=== PATIENT | male | born 1950 | race Caucasian/White ===

== ENCOUNTER → 2019-10-01 13:50 | Outpatient (CLI) | payer MEDICARE, OTHER, SELFPAY ==
[2019-10-02 09:16] LABS: COVID19 Sendout Not Detected (Not Detect)
== END ==
PROVIDERS: Visit Provider Physician Assistant
DX: Z01.812 Encounter for preprocedural laboratory examination (principal)
CPT/HCPCS: 87635

== ENCOUNTER 2019-10-04 10:24 | Day surgery (SDC) | payer MEDICARE, OTHER, SELFPAY ==
[2019-09-29 11:58] VITALS: BMI 29.6
[2019-10-04] VITALS (13 sets, daily range): BP systolic 101–137; BP diastolic 48–76; PULSE 55–72; RESP 10–18; TEMP 35.9–36.8; O2SAT 92–100; BMI 29.6
[2019-10-04] MEDS: LACTATED RINGERS 1,000 ML 42 ML IV (10:57)
[2019-10-04] MEDS: CELECOXIB 200 MG CAPSULE PO (11:23)
[2019-10-04] MEDS: ACETAMINOPHEN 325 MG TABLET 975 MG PO (11:24)
--- NOTE | 2019-10-04 11:39 | PM.PREOP ---
Pre-operative Note COVID-19 COVID-19 status: Negative Result date/Date tested (Pos, Neg/Pending): 10/01/19 Interval Note History & Physical reviewed/Exam performed by Physician: Yes Changes to H&P: No
--- NOTE | 2019-10-04 11:40 | P.OP_ITS ---
Operative Date/Time/Diagnoses Date of procedure: 10/04/19 Time of procedure: 14:00 Pre-op diagnosis: Right knee osteoarthritis Post-op diagnosis: same Procedure & Clinicians Procedure: Right total knee replacement Same procedure as scheduled: Yes Indications: The patient has had progressively worsening right knee pain with radiographic changes consistent with arthritis. Non-operative management has failed and the patient has requested total knee replacement. The risks, benefits and alternatives to surgery were discussed with the patient prior to proceeding. Risks discussed included, but were not limited to, failure to relieve pain, stiffness, infection, nerve damage, deep venous thrombosis, pulmonary embolism, stroke, coma, heart attack, permanent paralysis and , as well as the potential need for eventual revision of the prosthetic. Surgeon: Nav Lynne Summer Analyst: Aime Brown Click Yes if Unassisted: No Anesthesia Type: General, Spinal and Local Operative Notes Findings: Severe medial, moderate patellofemoral and mild lateral compartment osteoarthritis. Closure Type: primary Specimen(s): none sent Prosthetic devices, grafts, tissues, transplants, or devices: Implants used in this procedure were manufactured by the [employer] and included the BCS II Journey total knee replacement with a size 5 right Oxinium femoral component, a size 4 right non porous tibial base plate, an 11 mm cross- linked polyethylene tibial insert and a 35 mm oval Macarena II patella. Applied: implant(s) Estimated Blood Loss (mL): 25 Blood products transfused: none Tourniquet time (min): 52 Procedure in detail: The patient was seen in the pre-operative area, where the patient identified the right knee as the operative site and this was marked with my initials. The patient received pre-operative antibiotics, and was taken to the operating room and placed on the operative table in the supine position. After satisfactory anesthesia, a felt hat pouncing operator hand out was performed. The right leg was encircled with a tourniquet about the proximal thigh, and the leg was prepared from the toes to the tourniquet with ChloroPrep in the usual fashion and draped through sterile drapes. The leg was elevated and exsanguinated with Eschmark bandage and the tourniquet inflated to 250 mmHg pressure. The knee was approached through an approximately 18 cm incision centered over the patella and carried into the knee through a medial parapatellar arthrotomy. The anterior osteophytes and soft tissues were removed. The rotational landmarks of [place]'s line and the transepicondylar axis were marked on the femur with electrocautery, and intramedullary guide holes for the femur and tibia were created. The distal femoral cut was made in 6 degrees of valgus using the intramedullary guide at the primary cut setting. The proximal tibial cut was then made using the intramedullary guide, taking 9 mm of bone off the less involved side. The extension gap was checked and the rotation of the femoral component confirmed with the gap balancing system. The anterior, posterior and chamfer cuts were then made. The posterior osteophytes and soft tissues were then removed. The posterior capsule was injected with part of a mixture of 60 ml 0.25% Marcaine mixed with 20 ml Exparel and 4 mg of morphine for post-operative pain control. The remainder of this mixture was injected into the capsule and subcutaneous tissues during cement curing. The tibia was prepared with the rotation set by an extra medullary guide. Trial tibial and femoral components were then placed and the intercondylar notch cut through the femoral trial. Range of motion was 0-135 degrees, with good stability throughout the range. The patella was then cut to accommodate the patellar prosthetic. There was no need for a lateral release. The trials were then removed, and the femoral hole plugged with a bone plug. The bone was prepared with pulsatile lavage, and dried with a sponge. Cement was applied and the final prosthetics placed. Excess cement was removed during and after cement curing. After confirming there was no extruded cement posteriorly, the final tibial insert was placed. The knee was copiously irrigated and the tourniquet deflated. Hemostasis was obtained. The capsule was closed with interrupted # 2 polyester suture. The subcutaneous layer was closed with 3-0 Vicryl, and the skin with a running 3-0 V-Lock suture and Dermabond. An Aquacel Ag dressing was applied and the patient was taken to recovery having tolerated the procedure well. Complications: none Post-operative Condition: stable Disposition: PACU Plan for aftercare: The patient will be maintained on a standard total knee replacement protocol with weight bearing as tolerated. The patient will receive aspirin and sequential compression devices for DVT prophylaxis. The patient will be discharged home when safe for the home environment.
--- NOTE | 2019-10-04 12:02 | DI.RAD.S_ITS ---
PROCEDURE: XR KNEE RT 1TO2V INDICATIONS: POST OPERATIVE TOTAL RIGHT KNEE TECHNIQUE: 2 view(s) of the knee acquired. COMPARISON: None. FINDINGS: Bones: Patient is status post knee joint arthroplasty. Hardware components are in expected positions. Visualized bony structures are intact. Soft tissues: Overlying postoperative changes are noted. IMPRESSION: Expected postoperative appearance Dictated by: Brock Vargas M.D. on 10/04/2019 at 16:08 Approved by: Brock Vargas M.D. on 10/04/2019 at 16:08
[2019-10-04] MEDS: CEFAZOLIN 2 GM/100 ML FROZ.PIGGY IV (12:30)
--- NOTE | 2019-10-04 12:53 | SUR.OPER ---
Supine on padded OR bed. Pillow under head, arms secured on padded armboards <90 degree abduction. Safety belt across torso. Non-operative leg secured with tape over blanket over lower leg. Operative leg secured in DeMayo/Shaw positioner. Foam padded brace at thigh of operative leg.
[2019-10-04] MEDS: TRANEXAMIC ACID 1,000 MG VIAL 1000 MG INJ ×2 (13:01→13:36)
[2019-10-04] MEDS: BUPIVACAINE 0.25% W/ EPI 30 ML VIAL 60 ML INJ (13:01)
[2019-10-04] MEDS: BUPIVACAINE LIPOSOME 266 MG/20 ML VIAL INJ (13:01)
[2019-10-04] MEDS: MORPHINE 4 MG/ML INJ INJ (13:03)
--- NOTE | 2019-10-04 14:59 | SUR.PHASEI ---
Stable PACU stay, arrived with airway, airway out, patency maintained, 02 weaned off, took ice no nausea, report called, pt transported up to room and left in stable condition. Bed low, locked and SCD's on.
--- NOTE | 2019-10-04 15:06 | PC.NURSE ---
Pt arrived via PACU alert and oriented. Offers no overt c/o. RLE acewrapped. CDI no drainage note good PPs VSS. Pt following commands, asking appropriate questions. IV HL in place. Discussed plan for the evening.
[2019-10-04] MEDS: LACTATED RINGERS 1,000 ML 100 ML IV (15:42)
[2019-10-04] MEDS: ACETAMINOPHEN 325 MG TABLET 650 MG PO ×2 (15:45→20:55)
--- NOTE | 2019-10-04 15:50 | PC.NURSE ---
Pt arrived to RM 216 @ 1500 S/P right knee surgery. Alert/oriented. Denies discomfort at this time. Dsg to right knee brent wrap CDI Able to move toes, + CMS Call light w/in reach, Bed alarm on for pt safety.
[2019-10-04] MEDS: IBUPROFEN 400 MG TABLET PO ×2 (17:41→20:58)
[2019-10-04] MEDS: polyethylene glycoL 3350 17 GM POWD.PACK PO (17:41)
[2019-10-04] MEDS: diphenhydrAMINE 25 MG TABLET PO (20:55)
[2019-10-04] MEDS: DOCUSATE 100 MG CAPSULE PO (20:55)
[2019-10-04] MEDS: ASPIRIN EC 81 MG TABLET PO (20:55)
[2019-10-04] MEDS: MELATONIN 3 MG TABLET 6 MG PO (20:55)
[2019-10-04] MEDS: SIMVASTATIN 40 MG TABLET PO (20:56)
--- NOTE | 2019-10-04 22:26 | PC.NURSE ---
Evening note: Martin brought to rm 216 from PACU just prior to my shift start at 1500. He is awake, oriented & pleasant. Post-op VS have been stable, he denies dizziness or nausea. Had denied RLE pain until 2100 when he rated it 1/10. Medicated with Tylenol & Ibuprofen as scheduled. He stated he would like to avoid narcotic medication if possible. RLE with brent wrap/aquacel mid-thigh to calf, drsg remains CDI. Can lift leg off bed, reported good motor control during ambulation to BR and back to bed. CMS intact, strong pedal pulses, legs warm. Wearing bilateral SCD's. Gait steady, needs few reminders on walker use, not turning abruptly & avoidance of twisting his knee/leg. Only able to void 30 ml after standing up at toilet for 10 minutes. Assisted him back to bed. Bladder scan [id number]. When orders explained, he requested to wait one hour before ambulating to BR for 2nd attempt. 2100 dose of Doxazosin obtained from night pharmacy, as pharmacist did not supply in drawer.When I gave this med, patient said I forgot to take that last night-I don't know why. Pt instructed to call staff if he feels urge to urinate, & aware staff will come back in hour to assist him to the bathroom; he agrees with this plan. Denies other concerns/needs tonight. Fall precautions in place, alarm active for safety.
[2019-10-04] MEDS: DOXAZOSIN 2 MG TABLET 1 MG PO (22:44)
[2019-10-05 00:46] VITALS: BP 123/61; PULSE 64; RESP 16; TEMP 36.3; O2SAT 96
[2019-10-05] MEDS: LACTATED RINGERS 1,000 ML 100 ML IV (01:16)
[2019-10-05] MEDS: IBUPROFEN 400 MG TABLET PO ×3 (01:16→08:12)
--- NOTE | 2019-10-05 01:55 | PC.NURSE ---
Patient seen and assessed at 0120. At start of shift patient was in bathroom, standing, attempting to urinate; did not want to be straight cathed. Was only able to void 10cc despite repeated attempts so agreeable to in/out cath which was done with 700cc clear, varun urine returned. Is alert and oriented. Breath sounds CTA with RA sat of 96%; using home CPAP for sleep. HRR. Denies nausea. BT present but has not yet passed flatus. Aquacel dressing covered with brent wrap to right knee; CDI. CMS is intact. States pain is minimal at 1/10; medicated with scheduled Ibuprofen. Wearing bilateral calf SCD's. Fall risk score is moderate; bed alarm is activated.
[2019-10-05] MEDS: LEVOTHYROXINE 100 MCG TABLET 200 MCG PO (05:52)
[2019-10-05 06:04] VITALS: BP 93/53; PULSE 58; RESP 16; TEMP 36.3; O2SAT 99
--- NOTE | 2019-10-05 07:37 | PM.DS.1 ---
History of Present Illness History of Present Illness Date Patient Seen: 10/05/19 Time Patient Seen: 07:37 Chief complaint: *[id number] Narrative: The history and physical is contained in the chart and her previously completed note. Please refer to that note for this information. Discharge Providers Provider Discharge Date: 10/05/19 Consults: 10/04/19 15:05 Consult to Discharge Planning Routine Comment: Consult to Physical Therapy Evaluate & Treat Comment: Physician Instructions: postop TKA protocol Discharge provider: Nav Lynne MD Summary Hospital Course Discharge Diagnosis: 1. Right knee osteoarthritis 2. Urinary retention Hospital Course: The patient was admitted to the hospital and taken directly to the operating room on October 04, 2019. He underwent a right total knee replacement without complications. He had difficulty urinating overnight and did require straight catheterization. Otherwise his pain control was excellent. He had been up and walking around the room several times and had been able to stand for quite some time in the bathroom. At this time it is anticipated he will be able to go home later today although he may require a Urology consult and potentially a leg bag and Butt before discharge. His doxazosin and Vistaril were discontinued due to their anticholinergic properties. Status at Discharge Cognitive/behavioral status at discharge: oriented Functional status at discharge: uses cane/walker Overall status at discharge: patient is progressing back to baseline Time Spent with Patient Time spent: Less than 30 minutes Exam Vital Signs (past 8 hours): - 10/05/19 00:46 10/05/19 06:04 Temperature 97.4 F L 97.4 F L Pulse Rate 64 58 L Respiratory Rate 16 16 Blood Pressure 123/61 93/53 L Pulse Oximetry 96 99 Oxygen Delivery Method Room Air Oxygen Flow Rate 0 Narrative Exam Narrative: Right knee wound is dressed with no drainage on the bandage. Calf is soft. Light touch and motion are intact in the right lower extremity. Discharge Plan Discharge Plan Patient Disposition: Home Discharge Med Rec/Prescriptions Prescriptions: New acetaminophen 325 mg Tablet 650 mg PO TID 30 Days Qty: 180 RF: 0 aspirin 81 mg Tablet,Delayed Release (Dr/Ec) 81 mg PO BID 42 Days Qty: 84 RF: 0 oxycodone 5 mg Tablet 5 mg PO Q4H PRN (Reason: Pain, Moderate (4-6)) Qty: 40 RF: 0 Continued simvastatin 40 mg Tablet 40 mg PO BEDTIME RF: 0 diphenhydramine HCl 25 mg Capsule 25 mg PO BEDTIME RF: 0 ibuprofen 200 mg Tablet 600 mg PO Q6H PRN (Reason: Pain) RF: 0 levothyroxine 200 mcg Capsule 200 mcg PO DAILY RF: 0 melatonin 5 mg Tablet 5 mg PO BEDTIME RF: 0 Discontinued doxazosin 1 mg Tablet 1 mg PO BEDTIME RF: 0 Follow up/Referrals: Nav Lynne MD [Physician] - 2 Weeks Discharge Orders: Discharge (Order); Ordered 10/05/19 Ordered By: Nav Lynne Provider Discharge Instructions Diet: Diet as Tolerated and Regular Activity: You may bear weight as tolerated on your right leg. Cold/Heat Therapy: Apply ice for 15 minutes of every hour as needed to the right knee for pain control. Skin/Wound/Dressing Care Report to your healthcare provider any signs of infection, such as:: chills, fever, night sweats, increased pain, unusual drainage and unusual redness Dressing: Leave the Timmy wrap on until 3 days after surgery. You may then remove the Timmy wrap and shower normally. Leave the deeper dressing in place until follow-up. If the deeper dressing becomes saturated with either water or blood, please call the office. Visit Report/Discharge Packet Instructions: DI for Knee Replacement Stand Alone Forms: Surgery Discharge Discharge Data Attending Provider: Nav Lynne
[2019-10-05 08:00] VITALS: BP 104/47; PULSE 51; RESP 17; TEMP 36.4; O2SAT 97
[2019-10-05] MEDS: DOCUSATE 100 MG CAPSULE PO (08:12)
[2019-10-05] MEDS: ASPIRIN EC 81 MG TABLET PO (08:12)
[2019-10-05] MEDS: ACETAMINOPHEN 325 MG TABLET 650 MG PO (08:12)
[2019-10-05] MEDS: TAMSULOSIN 0.4 MG CAPSULE PO (08:15)
--- NOTE | 2019-10-05 10:38 | PT.IIE ---
Current Diagnoses Unilateral primary osteoarthritis, right knee (10/04/19) Surgery Performed Operation Date: 10/04/19 12:45 Actual Procedures p Total Knee Arthroplasty(Right) - Nav Lynne MD Surgical History (Last Updated 09/29/19 @ 12:14 by Nadya Fuentes, RN) History of arthroscopy of both knees (Acute) History of vasectomy (Acute) Hx of hammer toe correction (Acute) Hx of thyroidectomy (Acute) Medical History (Last Updated 09/29/19 @ 12:14 by Nadya Fuentes RN) HLD (hyperlipidemia) (Acute) Hypothyroid (Acute) Naylor's neuroma of both feet (Acute) DEE on CPAP (Acute) Psoriasis (Acute) Seasonal allergies (Acute) Physical Therapy Inpatient Evaluation/Re-Eval M1 PT/OT-IP Prior Functional Status Start: 10/04/19 15:57 Freq: NEEDED Status: Active Protocol: Document 10/05/19 10:18 AW (Rec: 10/05/19 10:37 AW [email or web address]) Medical Review Prior Functional Status Medical History Reviewed Yes Diet/Fluid Consistency Regular Communication WNL. Pt is an effective verbal communicator. Mobility and Gait Pt is an independent community ambulator at baseline and could walk up to 2 miles at a time. Activities of Daily Living and IADL's Independent, including driving . Social History Household Members spouse Living Arrangements House Number of Floors (Floors) One Floor Number of Stairs To Enter/Railing? 4 SHAYLA with wide bilateral rails Home Environment Standard Height Toilet,Walk in Shower,Built-In Shower Seat Home Equipment Front Wheel Walker,Grab Bars In Shower Employment Status Retired Additional Social History Comment Pt lives with his spouse, Liz, who is also retired and will be able and available for assist at discharge. M2 PT-IP Current Condition Start: 10/04/19 15:57 Freq: NEEDED Status: Active Protocol: Document 10/05/19 10:18 AW (Rec: 10/05/19 10:37 AW [email or web address]) Physical Therapy Current Condition Current Condition Evaluation Date 10/05/19 Treatment Diagnosis s/p R TKA, impaired mobility Onset Date 10/04/19 Weight Bearing Status Weight Bearing Status Weight Bear as Tolerated M3 PT-IP Subjective Start: 10/04/19 15:57 Freq: NEEDED Status: Active Protocol: Document 10/05/19 10:18 AW (Rec: 10/05/19 10:37 AW [email or web address]) Subjective Physical Therapy Visit Type Type Initial Evaluation Visit Start Time 09:03 Visit Stop Time 09:34 Total Visit Minutes 31 Physical Therapy Visit Comments Patient Comments Pt has good pain control and is willing to participate with PT. Patient Goals Pt hopes to discharge today. Therapy Pain Assessment Pain When Pain Assessed During Mobility Pain Present Pain Present Pain Reported Location Right Knee Intensity 4 Scale Used Numeric (0 - 10) Pain Management Techniques Apply Cold,Re-positioning, Timing of Activity with Medications M4 PT-IP Mobility and Gait Start: 10/04/19 15:57 Freq: NEEDED Status: Active Protocol: Document 10/05/19 10:18 AW (Rec: 10/05/19 10:37 AW [email or web address]) PT-Bed Mobility Assessment Supine to Sit Supine to Sit Standby Assistance Sit to Supine Sit to Supine Standby Assistance Scooting Scooting to Edge of Bed Standby Assistance Scooting Up and Down in Bed Standby Assistance PT-Transfer Assessment Sit to and From Stand Sit to and from Stand Standby Assistance,Use of Upper Extremities Equipment Transfer Assistive Device Gait Belt,Front Wheeled Walker Transfers Transfer Destination Bed,Chair,Toilet Transfer Technique pt ambulated with FWW Transfer Ability Level of Assist Standby Assistance Comments Mobility Comments Pt was using the toilet with PUBLIC WELFARE WORKER present when PT arrived. PT took over and pt transferred from the toilet, ambulated to the chair with FWW SBA. He did require cues to keep the walker with him until ready to sit. Pt sat with and without UE support for assessment. He then stood with FWW SBA and ambulated the halls for gait assessment and stair training. Upon return to the room, he transferred to the bed SBA for ther ex and then back to the chair where he was positioned with call light and all needs within reach. Gait Assessment Gait Gait Assistance Required: Standby Assistance Distance (Feet) 200 Able to Maintain Weight Bearing Status Yes During Gait Assistive Devices Assistive Device Gait Belt,Front Wheeled Walker Gait Deviations General Gait Pattern Antalgic,Decreased Feet Clearance,Wide Based Gait Factors Limiting Gait Function Factors Limiting Gait Function Decreased Strength,Pain,Poor Balance,Poor Safety Awareness Comments Gait Comments See mobility comments. Gait was characterized by LLE hip external rotation and excessive pronation, but step lengths and weightbearing were relatively equal without cueing. Stair Climbing Assessment Evaluation Level of Assist On Stairs Standby Assistance Devices Stair Climbing Assistive Devices Left Railing Technique/Endurance Stair Climbing Direction Ascend and Descend Stair Climbing Technique Step to Step Number of Steps Climbed 3 Query Text: Stair Climbing Set # Repetitions (reps) 2 Comments Stair Climbing Comments Pt used the left rail ascending and right rail descending with step-to patterning. He was able to sequence appropriately following brief education on technique and rationale. No need for verbal cues. PT-Balance Assessment Sitting Balance and Reactions Static Sitting Balance Ability Normal Dynamic Sitting Balance Ability Normal Standing Balance and Reactions Static Standing Balance Ability Good Dynamic Standing Balance Ability Good Device Used FWW M5 PT-IP Objective Assessments Start: 10/04/19 15:57 Freq: NEEDED Status: Active Protocol: Document 10/05/19 10:18 AW (Rec: 10/05/19 10:37 AW [email or web address]) Orientation Orientation/Cognition Level of Alertness Alert Orientation Name,Day of Week,Place, Situation Language Function Ability No Deficits Noted Safety Awareness Decreased Safety Awareness Memory Description No Deficits Noted Gross Range of Motion Upper Extremity ROM Assessment Within Functional Limits Lower Extremity ROM Assessment Right Impaired Strength Upper Extremity Strength Assessment Within Functional Limits Lower Extremity Strength Assessment Right Impaired Comments Strength Comments LLE grossly 5/5. R ankle 5/5. R knee 3+/5 with pt able to perform straight leg raise in supine. Coordination Assessment Gross Coordination Gross Coordination WNL Sensation Assessment Sensation Gross Sensation WNL Muscle Tone Muscle Tone WNL Yes M6 PT-IP Treatment Start: 10/04/19 15:57 Freq: NEEDED Status: Active Protocol: Document 10/05/19 10:18 AW (Rec: 10/05/19 10:37 AW [email or web address]) Physical Therapy Treatment Exercises Exercises Ankle Pumps,Quad Sets,Heel Slides,Straight Leg Raises, Short Arc Quads,Passive Knee Extension Hang Education Education Provided Precautions,Weight Bearing Status,Post-Op Packet,Safety Other Treatments Other Treatment Performed Provided education on role of PT, plan of care, weightbearing status, and rationale for using FWW until pt can be evaluated by outpatient PT. M7 PT-IP Assessment and Plan Start: 10/04/19 15:57 Freq: NEEDED Status: Active Protocol: Document 10/05/19 10:18 AW (Rec: 10/05/19 10:37 AW [email or web address]) PT Summary Assessment and Plan Potential Rehabilitation Potential Excellent Status of Condition at Evaluation Evolving Summary Impairments Pain,ROM,Strength,Balance,Bed Mobility,Transfers,Gait, Activity Tolerance Assessment Summary José Antonio is an affable 68 yo man seen for PT evaluation on POD1 following R TKA. He is functionally independent in all regards at baseline. One evaluation, he required no more than SBA for all mobility with use of FWW. PT spent considerable time educating the pt on safe use of FWW and encouraging the pt to continue using the FWW until outpatient PT evaluation at least. Pt is safe for discharge to the home environment with outpatient PT which is already scheduled. Goals Bed Mobility Goal Independent Transfer Goal Independent,Front Wheeled Walker Gait Goal Independent,Front Wheel Walker Gait Distance 300 Other Goals - up/down 4 steps using L rail ascending and L rail descending independent Days to Meet Goals 1 Frequency of Treatment Frequency Of Treatment Discharge Recommendations To Nursing Amount of Assist Needed Standby Assistance Discharge Recommendations PT Discharge Recommendations Home with Assistance, Outpatient PT Transportation Needs at Discharge Private Vehicle
--- NOTE | 2019-10-05 11:52 | CM.DANOTE ---
DCP/Assessment: Reviewed chart. Patient is a 68yr old male admitted to [facility] for elective right TKA performed on 10-04-[address] Lynne. Primary payor is 1)Medicare 2)[facility]. Met with patient explained CM/SW role. Patient's spouse at bedside. Patient reports that he is preparing to discharge today. Patient seen by PT and cleared to d/c home. Patient plans to do outpatient therapy at [facility] in [place]. Patient has all needed DME for home. No additional needs identified. P: Home today. CARLEEN Jeffries Discharge Planning/Care Management Advanced directive, confirm from FAMILY Start: 10/04/19 15:19 Freq: Q24H Status: Active Protocol: Document 10/04/19 15:49 KMD (Rec: 10/04/19 15:50 KMD [id number]) Advance Directive, confirm on record Time 15:49 Person contacted Patient Copy received No CM Discharge Assessment Start: 10/05/19 11:48 Freq: Status: Active Protocol: Document 10/05/19 11:48 KJS (Rec: 10/05/19 11:52 KJS [id number]) Discharge Planning Assessment Assigned Property Utilization Officer CARLEEN Jeffries Contact Information Liz Rawls (spouse) Advance Directives? Yes Advance Directives on File No History Provided By Patient,Significant Other, Medical Record Prior Living Arrangements House Household Members spouse Type of transporation used prior to Drives own vehicle admit Independent with ADL's Yes Is patient alert and oriented? Yes Caregiver for Another No DME Already Rented / Owned FWW / Walker Patient/Family Preference OP PT Therapy Barriers to Discharge No Discharge Plan Home Transportation Arrangement Transport to be provided by spouse. Referrals Initiated None needed Whiteboard Updated in Patient Room with Yes name and ext. # of Property Utilization Officer Review Status In Process Next Review Type Continued Stay Review Pre-Anesthesia Assessment Start: 09/29/19 11:56 Freq: Status: Complete Protocol: Document 09/29/19 11:58 CAB (Rec: 09/29/19 12:35 CAB [id number]) Pre-Anesthesia Assessment Patient Information Reviewed Via Phone Assessment Assessment Completed With Patient Primary Care Provider Elizabeth Ratliff Seen Specialist in Last 12 Months Yes Specialist Seen Orthopedist Comment Pt scheduled for COVID/labs/ EKG @ 10/02/19 Primary Language Setswana Yarn Wrapper Required No Height 170.18 cm Weight 85.729 kg Body Mass Index (BMI) 29.6 Hearing Ability Normal Visual Assist Glasses Dentition Type Teeth, Natural Present Barriers to Learning None Other Aids Yes: CPAP Hx Anesthesia Reactions No Hx Family Anesthesia Reaction No Hx Malignant Hyperthermia No Hx Blood Transfusions No Anesthesia Review Requested No alcohol intake current alcohol intake frequency a few times a week Smoking Status Never smoker Substance Use Type does not use Pain Present Pain Reported Musculoskeletal Symptoms Abnormal Gait,Difficulty Walking,Joint Pain History of Falling (Recent or History of No ) Patient is completely paralyzed or No completely immobile Mental Status Oriented to own ability Is patient on oxygen? No Does patient have SUH/SOB No Hx Sleep Apnea Yes CPAP/BIPAP use prescribed and used routinely Will Bring CPAP/BIPAP DOS Yes Currently Taking a Beta Pj No Can You Climb a Flight of Stairs Without Yes SOB Hx Chest Pain No Hx SOB No Hx Syncope or Dizziness No Anti-Coagulant Therapy No Has a Inspector Open Die No Cardiac Testing No Hx Pacemaker/ICD No Pacemaker Rep Required? No Cardiac Clearance Received Not Applicable Diet Type At Home Regular dysphagia No Genitourinary Symptoms Change in Urinary Stream Bladder Pattern Frequency Urinary Catheter Present No Hx Urinary Self Catheterization No Diabetes No Hx Drug Resistant Organism No Presence of External or Internal Medical Yes: CPAP Devices Have you had any close contact with No someone diagnosed with COVID-19? Evaluation/Screening for possible COVID- Yes 19 infection completed? Marital Status Lives With spouse Prior Living Arrangements House Number of Floors (Floors) One Floor Support System Spouse Does the Patient Have Assistance After Yes Surgery Patient Discharge Plan Description Return Home Comment Pt advised overnight length of stay per surgeon Feels Safe in Current Environment Yes Been Physically Hurt or Threatened By a No Person in Current Environment Do you have thoughts of harming yourself None or others? Are you currently considering suicide? No Do you have a plan to hurt yourself or No Plan others? Do You Have Any Spiritual Beliefs That No May Affect Your HC Choices? Do You Have Any Cultural Practices That No May Affect Your HC Choices? Who Can We Speak to About Patient's Care Family, friends Identifying Code for Release of Patient Declines to issue Information Health Care Proxy/Next of Kin Sabine () Health Care Proxy Emergency Contact Name Sabine () Emergency Contact Advance Directives? Yes Advance Directives on File No Requested Patient Bring Advanced Yes Directives DOS Power of Sales Development Manager No PAC Instructions Durable medical equipment, Medications to take/avoid, Nasal antibiotic,No ETOH/ petroleum product on skin DOS, NPO,Pre-surgical wash,Sensory aids,Sturdy shoes/comfortable clothes,Do not bring valuables and remove jewelry
--- NOTE | 2019-10-05 12:37 | PC.NURSE ---
Discharge: Pt feels ready to d/c home. has seen md and been given his instructions. Seen by PT and received their final instructions. Given flomax this am and has voided x3, last 400mls. Pt feels as if he is emptying his bladder and md made aware he is able to do this now. Office will call in rx to pt's pharmacy for flomax. Rx given. Discharge packet reviewed and questions answered. Spouse here for part of teaching. Pt d/c home via auto w/spouse.
== END 2019-10-05 12:00 | disposition home or self-care (01) ==
LOC: OR 10:26 → AC 10:27
PROVIDERS: Referring Provider Orthopaedic Surgery; Visit Provider Orthopaedic Surgery
PROC: 0SRC0JZ Replacement of Right Knee Joint with Synthetic Substitute, Open Approach (ICD-10-PCS; CPT 27447; principal; 2019-10-04 12:45)
DX: M17.11 Unilateral primary osteoarthritis, right knee (principal); G47.33 Obstructive sleep apnea (adult) (pediatric)
CPT/HCPCS: 27447; 73560; 97110; 97161; C1776; C9290; J0690; J2250; J2270; J2274; J2704; J3010